=== PATIENT | female | born 1975 | race Caucasian/White ===

== ENCOUNTER 2016-10-26 14:33 | Emergency (ER) | payer BC ==
[2016-10-26 15:25] VITALS: BP 125/68
--- NOTE | 2016-10-26 16:08 | RAD ---
INDICATION: Left foot injury COMPARISON: June 13, 2012 TECHNIQUE: AP, lateral, and oblique views were obtained. FINDINGS: There are no acute bony findings. There are heel spurs. There are post traumatic/postsurgical changes to the lateral and medial malleoli. IMPRESSION: NO ACUTE BONY FINDINGS.
--- NOTE | 2016-10-26 16:25 | UC ---
Lower Extremity/Ankle HPI - HPI Summary HPI Summary: LEFT FOOT PAIN, TRIPPED AND FALL FORWARD WITH TWISTING INJURY AT 1330. NO ANKLE PAIN. NO LOC. NO KNEE PAIN. 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 Hx Last Menstrual Period: 10/12/16 Onset/Duration: Sudden Onset, Lasting Hours, Still Present Severity Initially: Mild Severity Currently: Mild Aggravating Factor(s): Standing, Ambulation Alleviating Factor(s): Rest, Elevation Able to Bear Weight: Yes - Risk Factors Gout Risk Factors: Negative DVT Risk Factors: Negative Septic Arthritis Risk Factor: Negative - Allergies/Home Medications Allergies/Adverse Reactions: Allergies Allergy/AdvReac Type Severity Reaction Status Date / Time No Known Allergies Allergy Verified 10/26/16 15:25 Home Medications: Home Medications Acetaminophen [Acetaminophen Extra Stren] 1,000 mg PO DAILY 10/26/16 [History Confirmed 10/26/16] PMH/Surg Hx/FS Hx/Imm Hx Previously Healthy: Yes - Surgical History Surgical History: Yes Surgery Procedure, Year, and Place: left ankle surgery x 2. tubal ligation - Family History Known Family History: Negative: Other - NO JOINT LAXITY - Social History Occupation: Employed Full-time Lives: With Family Alcohol Use: Occasionally Substance Use Type: None Smoking Status (MU): Never Smoked Tobacco Review of Systems Constitutional: Negative Skin: Negative Eyes: Negative ENT: Negative Respiratory: Negative Cardiovascular: Negative Gastrointestinal: Negative Genitourinary: Negative Motor: Negative Neurovascular: Negative Musculoskeletal: Arthralgia, Myalgia Neurological: Negative Psychological: Negative Is Patient Immunocompromised?: No All Other Systems Reviewed And Are Negative: Yes Physical Exam Triage Information Reviewed: Yes Appearance: Well-Appearing, No Pain Distress, Well-Nourished, Obese Vital Signs: Initial Vital Signs Temp 98.4 F 10/26/16 15:20 Pulse 67 10/26/16 15:20 Resp 18 10/26/16 15:20 BP 125/68 10/26/16 15:20 Pulse Ox 99 10/26/16 15:20 Vital Signs Reviewed: Yes Eye Exam: Normal ENT Exam: Normal ENT: Positive: Normal ENT inspection, TMs normal Dental Exam: Normal Neck exam: Normal Neck: Positive: Supple, Nontender, No Lymphadenopathy Respiratory Exam: Normal Respiratory: Positive: Chest non-tender, Lungs clear, Normal breath sounds, No respiratory distress Cardiovascular Exam: Normal Cardiovascular: Positive: RRR, No Murmur, Pulses Normal Abdominal Exam: Normal Abdomen Description: Positive: Nontender, No Organomegaly Musculoskeletal: Positive: Strength Intact, ROM Intact, No Edema, Other: - TENDER TO 3-5TH METATARSALS Neurological Exam: Normal Psychological Exam: Normal Skin Exam: Normal Lower Extremity Course/Dx - Differential Dx/Diagnosis Differential Diagnosis/HQI/PQRI: Fracture (Closed), Sprain, Strain Provider Diagnoses: LEFT FOOT SPRAIN Discharge - Discharge Plan Condition: Stable Disposition: HOME Patient Education Materials: Foot Sprain (ED) Forms: *Work Release Referrals: [facility] [Outside] - If Needed Sacha Jonas MD [Medical Doctor] - If Needed STEFFI Vargas [Primary Care Provider] -
== END 2016-10-26 16:28 | disposition home or self-care (01) ==
LOC: UCCORT 14:33
DX: S93.602A Unspecified sprain of left foot, initial encounter (principal); W01.0XXA Fall on same level from slipping, tripping and stumbling without subsequent striking against object, initial encounter; Y92.9 Unspecified place or not applicable
CPT/HCPCS: 99203; G0463

== ENCOUNTER 2017-03-07 17:29 | Emergency (ER) | payer BC ==
[2017-03-07 18:51] VITALS: BP 133/64
--- NOTE | 2017-03-07 19:41 | UC ---
Knee Pain HPI - HPI Summary HPI Summary: FELL DIRECTLY ONTO HER RIGHT KNEE ABOUT 3 WEEKS AGO. HAS BANGED IT A FEW TIMES SINCE THEN. TODAY KNOCKED IT AGAIN AND HAD EXCRUCIATING PAIN SO CAME IN FOR EVAL. - History of Current Complaint Chief Complaint: UCLowerExtremity Stated Complaint: RIGHT KNEE Time Seen by Provider: 03/07/17 19:30 Hx Obtained From: Patient Hx Last Menstrual Period: 02/19/17 has had tubal Onset/Duration: Sudden Onset, Lasting Weeks, Still Present Severity Initially: Moderate Severity Currently: Mild Location Of Injury: RIGHT KNEE Pain Intensity: 2 Pain Scale Used: 0-10 Numeric Character: Sharp Aggravating Factor(s): Movement Alleviating Factor(s): Rest Associated Signs And Symptoms: Negative: Swelling, Redness, Bruising, Numbness Able to Bear Weight: Yes - Allergies/Home Medications Allergies/Adverse Reactions: Allergies Allergy/AdvReac Type Severity Reaction Status Date / Time No Known Allergies Allergy Verified 03/07/17 18:51 Home Medications: Home Medications NK [No Home Medications Reported] 03/07/17 [History Confirmed 03/07/17] PMH/Surg Hx/FS Hx/Imm Hx GI/ History: Gastroesophageal Reflux - Surgical History Surgical History: Yes Surgery Procedure, Year, and Place: left ankle surgery x 2. tubal ligation - Family History Known Family History: Positive: Hypertension Negative: Other - NO JOINT LAXITY - Social History Alcohol Use: Occasionally Substance Use Type: None Smoking Status (MU): Never Smoked Tobacco Review of Systems Constitutional: Negative Skin: Negative Respiratory: Negative Cardiovascular: Negative Gastrointestinal: Negative Musculoskeletal: Arthralgia All Other Systems Reviewed And Are Negative: Yes Physical Exam Triage Information Reviewed: Yes Appearance: Well-Appearing, No Pain Distress, Well-Nourished Vital Signs: Initial Vital Signs Temp 97.3 F 03/07/17 18:46 Pulse 84 03/07/17 18:46 Resp 17 03/07/17 18:46 BP 133/64 03/07/17 18:46 Pulse Ox 100 03/07/17 18:46 Vital Signs Reviewed: Yes Eyes: Positive: Conjunctiva Clear ENT: Positive: Hearing grossly normal Neck: Positive: Supple Respiratory: Positive: No respiratory distress, No accessory muscle use Cardiovascular: Positive: Pulses Normal Abdomen Description: Positive: Soft Musculoskeletal: Positive: ROM Intact, No Edema, Other: - RIGHT KNEE: TTP PATELLA. NO JOINT LINE TENDERNESS. MCL AND LCL INTACT TO STRESS TESTING. NEG LACHMANS. NEG DRAWERS SIGNS. NEG MCMURRAYS. NEG PATELLAR APPREHENSION TEST. NO TENDERNESS OVER PATELLAR LIGAMENT OR QUADRICEPS TENDON. Neurological: Positive: Alert Psychological: Positive: Age Appropriate Behavior Skin: Negative: rashes Diagnostics - Radiology RIGHT KNEE XRAY Xray Interpretation: No Acute Changes Radiology Interpretation Completed By: Radiologist Knee Pain Course/Dx - Differential Dx/Diagnosis Provider Diagnoses: RIGHT KNEE CONTUSION Discharge - Discharge Plan Condition: Stable Disposition: HOME Patient Education Materials: Contusion in Adults (ED), Knee Pain (ED) Referrals: Sacha Jonas MD [Medical Doctor] - If Needed STEFFI Vargas [Primary Care Provider] - If Needed Additional Instructions: XRAY SHOWED MILD DEGENERATIVE CHANGES BUT NO ACUTE INJURY. CONTUSION: Your injury has resulted in a contusion -- a crushing of the deep tissues. No injury to important structures was detected during the physician's exam. Contusions vary in the amount of pain they cause, and in the length of time required for healing. Typically, the area will become bruised, and will remain painful to touch for two or three weeks. However, most patients are back to working and playing within a few days. After the initial period of rest and cold-packs, your symptoms (together with the doctor's recommendations) will determine how rapidly you can get back to full activity. Usually this means "do what feels okay, but don't do things that hurt." If re-examination was recommended, it's important to follow up as instructed. Call the doctor or return any time if pain increases, if swelling becomes severe, if you develop numbness or weakness in an injured extremity, or if any other alarming symptoms occur. REST, ICE, COMPRESS, ELEVATE. AVOID RECURRENT TRAUMA. FOLLOW-UP WITH YOUR PCP OR ORTHO IF YOUR SYMPTOMS DO NOT IMPROVE.
--- NOTE | 2017-03-07 21:13 | RAD ---
Indication: Right knee pain. 4 views of the right knee demonstrates no fracture. No other bone or joint abnormality is noted. There is joint space narrowing in the medial compartment. IMPRESSION: Mild degenerative changes medial compartment right knee. No fracture or effusion is noted.
== END 2017-03-07 21:39 | disposition home or self-care (01) ==
LOC: UCCORT 17:29
DX: S80.01XA Contusion of right knee, initial encounter (principal); W22.09XA Striking against other stationary object, initial encounter; Y93.9 Activity, unspecified; Y92.9 Unspecified place or not applicable; Z72.89 Other problems related to lifestyle
CPT/HCPCS: 99212; G0463

== ENCOUNTER 2017-07-26 21:01 | Emergency (ER) | payer BC ==
[2017-07-26 21:22] VITALS: BP 117/51
[2017-07-26] MEDS ORDERED: HYDROcodone/ACETAMIN 5-325 MG* 1 TAB PO ONE (21:38)
--- NOTE | 2017-07-26 21:46 | UC ---
Hand/Wrist HPI - HPI Summary HPI Summary: 42 yo female c/o R hand / wrist pain s/p t/f onto hand / forearm just inspector outside steam distribution. No loc. Hurts to move hand / fingers. Dysesthetic fingers, but + sens LT. Able to straighted elbow. Denies further injury. Hx CTS. 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 tubal ligation - Family History Known Family History: Positive: Hypertension Negative: Other - NO JOINT LAXITY - Social History Alcohol Use: Occasionally Substance Use Type: None Smoking Status (MU): Never Smoked Tobacco Review of Systems Constitutional: Negative Skin: Negative - no current bruising. + swelling Eyes: Negative ENT: Negative Respiratory: Negative Cardiovascular: Negative Gastrointestinal: Negative Genitourinary: Negative Motor: Other - see hpi Neurovascular: Other - see hpi Musculoskeletal: Arthralgia - see hpi Neurological: Negative - see hpi Psychological: Negative Is Patient Immunocompromised?: No All Other Systems Reviewed And Are Negative: Yes Physical Exam Triage Information Reviewed: Yes Appearance: Well-Nourished - sitting up, conversing easily Vital Signs: Initial Vital Signs Temp 98.1 F 07/26/17 21:15 Pulse 84 07/26/17 21:15 Resp 16 07/26/17 21:15 BP 117/51 07/26/17 21:15 Pulse Ox 100 07/26/17 21:15 Vital Signs Reviewed: Yes Eye Exam: Normal - grossly normal ENT Exam: Normal - grossly normal Neck exam: Normal Neck: Positive: Supple, Nontender Respiratory Exam: Normal - rr regular, no tachypnea, no dyspnea Cardiovascular Exam: Normal - hr regular, + r/u pulses palpable Abdominal Exam: Normal Abdomen Description: Positive: Nontender Musculoskeletal Exam: Other - R hand + swelling. CR < 2 sec. +sens LT, + subj dysesth x 5 digits. Able to move fingers, but painful "ok" sign. Tender lat dorsal hand, wrist, forearm. Without point bony tenderness. No snuffbox tender. Able to straighten elbow. + Ax N sens LT Neurological Exam: Normal - grossly nonfocal except as above musc skel Psychological Exam: Normal - conversing easily and appropriately Skin Exam: Normal - non diaphoretic, no visible eccymosis at this time. + swelling Hand/Wrist Course/Dx - Course Course Of Treatment: Pt would like pain medication here. Denies hx addiction. Reviewed narc talk. S[place]y x 2 5 / 325 po x 1 here. 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 Reviewed xrays reports with pt. Questions as posed answered to the best of my ability. Reviewed coa / tx plan. Questions as posed answered to the best of my ability. - Differential Dx/Diagnosis Provider Diagnoses: Acute R wrist sprain. Hx carpal tunnel syndrome Discharge - Sign-Out/Discharge Documenting (check all that apply): Discharge/Admit/Transfer - Discharge Plan Condition: Stable Disposition: HOME Prescriptions: Naproxen [Naproxen 500 mg tab] 500 mg PO Q12H PRN #30 tablet.dr ENRIQUEZ Reason: Pain Patient Education Materials: Wrist Sprain (ED) Forms: *Work Release Referrals: STEFFI Vargas [Primary Care Provider] - Getachew Kc MD [Medical Doctor] - Additional Instructions: Follow up with orthopedic surgeon next week. Seek medical attention for worse or new problems. Splint sling for comfort. Elevate as much as possible, especially the next 3 days. Follow up with your primary care physician, per routine. - Billing Disposition and Condition Condition: STABLE Disposition: Home
--- NOTE | 2017-07-26 22:07 | RAD ---
INDICATION: Right forearm injury. TECHNIQUE: 2 views of the right forearm were obtained. FINDINGS: The bones are in normal alignment. No fracture is seen. IMPRESSION: NO EVIDENCE FOR FRACTURE.
--- NOTE | 2017-07-26 22:09 | RAD ---
INDICATION: Right hand injury. TECHNIQUE: 4 views of the right hand were obtained. FINDINGS: The bones are in normal alignment. No fracture is seen. There is mild osteoarthritic change in the proximal and distal interphalangeal joints. IMPRESSION: NO EVIDENCE FOR FRACTURE, IF THE PATIENT'S SYMPTOMS PERSIST RECOMMEND FOLLOW-UP IMAGING.
[2017-07-26] MEDS ORDERED: Naproxen TAB* 250 MG PO ONE (22:16)
== END 2017-07-26 22:25 | disposition home or self-care (01) ==
LOC: UCCORT 21:01
DX: S63.501A Unspecified sprain of right wrist, initial encounter (principal); Z87.39 Personal history of other diseases of the musculoskeletal system and connective tissue; X58.XXXA Exposure to other specified factors, initial encounter; Y93.9 Activity, unspecified; Y92.9 Unspecified place or not applicable
CPT/HCPCS: 99213; A9270-GY; G0463

== ENCOUNTER 2017-11-24 13:08 | Emergency (ER) | payer BC ==
[2017-11-24 13:46] VITALS: BP 142/77
--- NOTE | 2017-11-24 14:30 | UC ---
Respiratory Complaint HPI - HPI Summary HPI Summary: Pt c/o nasal congestion, sinus tenderness, chills, malaise cough, SOB fatigue X 3 weeks. - History of Current Complaint Chief Complaint: UCRespiratory Stated Complaint: HEADACHE,COUGH,CONGESTION Time Seen by Provider: 11/24/17 14:26 Hx Obtained From: Patient Hx Last Menstrual Period: 11/21/17 ?: No Onset/Duration: Gradual Onset, Lasting Weeks, Still Present Timing: Constant Severity Initially: Mild Severity Currently: Moderate Pain Intensity: 5 Character: Cough: Nonproductive Aggravating Factors: Exertion, Deep Breaths, Recumbent Position Alleviating Factors: Nothing Associated Signs And Symptoms: Positive: Chills, URI, Nasal Congestion - Risk Factors Pulmonary Embolism Risk Factors: Negative Cardiac Risk Factors: Negative Pseudomonas Risk Factors: Negative Tuberculosis Risk Factors: Negative - Allergies/Home Medications Allergies/Adverse Reactions: Allergies Allergy/AdvReac Type Severity Reaction Status Date / Time No Known Allergies Allergy Verified 11/24/17 13:42 PMH/Surg Hx/FS Hx/Imm Hx Previously Healthy: Yes - Surgical History Surgical History: Yes Surgery Procedure, Year, and Place: left ankle surgery x 2. tubal ligation - Family History Known Family History: Positive: Hypertension Negative: Other - NO JOINT LAXITY - Social History Occupation: Employed Full-time Lives: With Family Alcohol Use: Rare Substance Use Type: None Smoking Status (MU): Never Smoked Tobacco Have You Smoked in the Last Year: No Review of Systems Constitutional: Chills, Fatigue Skin: Negative Eyes: Negative ENT: Sinus Congestion, Sinus Pain/Tenderness Respiratory: Shortness Of Breath, Cough Cardiovascular: Negative Gastrointestinal: Negative Genitourinary: Negative Motor: Negative Neurovascular: Negative Musculoskeletal: Negative Neurological: Negative, Headache - with cough Psychological: Negative Is Patient Immunocompromised?: No All Other Systems Reviewed And Are Negative: Yes Physical Exam Triage Information Reviewed: Yes Appearance: Ill-Appearing Vital Signs: Initial Vital Signs Temp 97.3 F 11/24/17 13:40 Pulse 76 11/24/17 13:40 Resp 18 11/24/17 13:40 BP 142/77 11/24/17 13:40 Pulse Ox 100 11/24/17 13:40 Vital Signs Reviewed: Yes Eye Exam: Normal ENT: Positive: Nasal congestion, Sinus tenderness Dental Exam: Normal Neck exam: Normal Respiratory Exam: Normal Cardiovascular Exam: Normal Musculoskeletal Exam: Normal Neurological Exam: Normal Psychological Exam: Normal Skin Exam: Normal UC Diagnostic Evaluation - Laboratory O2 Sat by Pulse Oximetry: 100 Respiratory Course/Dx - Differential Dx/Diagnosis Differential Diagnosis/HQI/PQRI: Bronchitis, Influenza Provider Diagnoses: bronchitis Discharge - Sign-Out/Discharge Documenting (check all that apply): Patient Departure All imaging exams completed and their final reports reviewed: No Studies - Discharge Plan Condition: Stable Disposition: HOME Prescriptions: Amoxicillin PO (*) [Amoxicillin 875 MG (*)] 875 mg PO Q12H #20 tab Benzonatate CAP* [Tessalon 100 MG CAP*] 100 mg PO Q8H PRN #30 cap PRN Reason: Cough predniSONE TAB* [Deltasone 20 MG TAB*] 20 mg PO DAILY #4 tab Patient Education Materials: Acute Bronchitis (ED) Forms: *Work Release Referrals: [facility] [Outside] - If Needed No Primary Care Phys,NOPCP [Primary Care Provider] - - Billing Disposition and Condition Condition: STABLE Disposition: Home - Attestation Statements Provider Attestation: I was available for consult. This patient was seen by the KIM. The patient was not presented to, seen by, or examined by me. -Ronan
== END 2017-11-24 14:43 | disposition home or self-care (01) ==
LOC: UCCORT 13:08
DX: J40 Bronchitis, not specified as acute or chronic (principal)
CPT/HCPCS: 99212; G0463